=== PATIENT | female | born 1965 | race Caucasian/White ===

== ENCOUNTER 2016-10-11 20:52 | Emergency (ER) | payer OTHER ==
[~2016-10-11] VITALS: Ht 165.1 cm; Wt 79.4 kg
[~2016-10-11 20:52] MED LIST: BACTRIM DS TABL1 TA1 PO; BACTRIM DS TABL1 TAB PO; CIPRO PO; CLEOCIN HCL300 M1 PO; IBUPROFEN800 MG PO; KEFLEX PO; NEPTAZANE PO; PREMPRO PO; PYRIDIUM PO; TYLENOL #3 PO; VICODIN 5/500 T1 TAB PO; ZOLOFT PO
== END 2016-10-11 22:07 | disposition left against medical advice (07) ==
LOC: CED 20:52
DX: Z53.21 Procedure and treatment not carried out due to patient leaving prior to being seen by health care provider (principal)